=== PATIENT | female | born 1985 | race American Indian/Alaskan Native ===

== ENCOUNTER 2019-07-03 11:10 | Emergency (ER) | payer SELFPAY ==
--- NOTE | 2019-07-03 11:15 | Emergency Department Report ---
Blank Doc - Documentation Documentation: This is a 34-year-old female that presents with left axilla and vaginal area a bscess. This initial assessment/diagnostic orders/clinical plan/treatment(s) is/are subject to change based on patient's health status, clinical progression and re- assessment by fellow clinical providers in the ED. Further treatment and workup at subsequent clinical providers discretion. Patient/guardians urged not to elope from the ED as their condition may be serious if not clinically assessed and managed. Initial orders include: 1- Patient sent to [facility] for further evaluation and treatment
[2019-07-03 11:16] VITALS: BP 143/74
[2019-07-03] MEDS ORDERED: IBUPROFEN PO ONE (13:44)
--- NOTE | 2019-07-03 14:06 | Emergency Department Report ---
Abscess Boil HPI - HPI Chief Complaint: Skin/Abscess/Foreign Body Stated Complaint: CYST LT AXILLA/VAGINA Time Seen by Provider: 07/03/19 11:14 Duration: >1 Week Location: Upper Extremity (left armpit) History: Yes Pain, Yes Previous History, No Fever, No Purulent Drainage, No Numbness, No Foreign Body, No Insect Bite HPI: 34-year-old female presents to the ED complaining red raised painful mass on her left armpit. Patient states this is been there for about a week. Patient also states teres and nontender with painful mass to her right labia. She denies fevers/chills/nausea vomiting Home Medications: Previous Rx's Medication Instructions Recorded Last Taken Type Cyclobenzaprine [Flexeril] 10 mg PO QHS PRN #10 tablet 03/21/19 Unknown Rx Clindamycin [Clindamycin CAP] 300 mg PO Q8H #21 cap 07/03/19 Unknown Rx Ibuprofen [Motrin 600 MG tab] 600 mg PO Q8H PRN #20 tablet 07/03/19 Unknown Rx Allergies/Adverse Reactions: Allergies Allergy/AdvReac Type Severity Reaction Status Date / Time No Known Allergies Allergy Unverified 03/21/19 09:15 ED Review of Systems ROS: Stated complaint: CYST LT AXILLA/VAGINA Other details as noted in HPI Comment: All other systems reviewed and negative ED Past Medical Hx - Past Medical History Previous Medical History?: No - Surgical History Past Surgical History?: Yes Additional Surgical History: x 1 - Social History Smoking Status: Never Smoker Substance Use Type: None - Medications Home Medications: Home Medications Medication Instructions Recorded Confirmed Last Taken Type Cyclobenzaprine [Flexeril] 10 mg PO QHS PRN #10 tablet 03/21/19 Unknown Rx Clindamycin [Clindamycin CAP] 300 mg PO Q8H #21 cap 07/03/19 Unknown Rx Ibuprofen [Motrin 600 MG tab] 600 mg PO Q8H PRN #20 tablet 07/03/19 Unknown Rx ED Abscess Boil Physical Exam - Exam General: Vital signs noted. No distress. Alert and acting appropriately. Size: 2 cm Exam: Yes Tenderness, Yes Fluctuance, Yes Surrounding Cellulites/Erythema, Yes Normal Neurologic Exam, Yes Normal Circulation, No Lymphangitis, No Crepitation, No Heart Murmur Exam: Right that he began non-fluctuant and erythematous nodule. No pus drainage. I & D Note - I & D Note I & D Note: Patient positioned appropriately,5cc lidocaine without epinephrine was used as a local anesthetic. #11 blade scalpal used for single incision. Additional local anesthetic injected into surrounding viable tissue prior to blunt dissection of loculated adhesions. Copius drainage of pus. Wound packed with iodoform gauze. Procedure tolerated without complications. Wound dressed with sterile 4x4 guaze and paper tape. Pt tolerated procedure well. ED Course Vital Signs 07/03/19 11:14 Temperature 99 F Pulse Rate 72 Respiratory 20 Rate Blood Pressure 143/74 O2 Sat by Pulse 98 Oximetry Critical care attestation.: If time is entered above; I have spent that time in minutes in the direct care o f this critically ill patient, excluding procedure time. ED Medical Decision Making - Medical Decision Making 34 y old female presents with axillary abscess left Patient tolerated the procedure well Vital signs are normal patient is in no acute distress. Discussed the patient to follow up with primary care physician. ED Disposition Clinical Impression: Axillary abscess, Cellulitis of axilla, left Disposition: [id number] TO HOME OR SELFCARE Is pt being admited?: No Does the pt Need Aspirin: No Condition: Stable Instructions: Cellulitis (ED), Folliculitis (ED) Additional Instructions: Make sure to follow up with the primary care physician as discussed. Take all your medications as you've been prescribed. If you have any worsening symptoms or develop new symptoms please return to ED immediately. Prescriptions: Clindamycin [Clindamycin CAP] 300 mg PO Q8H #21 cap Ibuprofen [Motrin 600 MG tab] 600 mg PO Q8H PRN #20 tablet PRN Reason: Pain Referrals: PRIMARY CARE, [Primary Care Provider] - 3-5 Days Forms: Work/School Release Form(ED)
== END 2019-07-03 14:38 | disposition home or self-care (01) ==
LOC: ED 11:10
DX: L03.112 Cellulitis of left axilla (principal)